=== PATIENT | male | born 1955 ===

== ENCOUNTER 2022-07-28 08:02 | Outpatient (CLI) | payer OTHER | END 2022-07-28 08:16 | disposition home or self-care (01) | LOC: MRI 08:02 | PROVIDERS: ATTEND Internal Medicine Gastroenterology | DX: K83.8 Other specified diseases of biliary tract (principal); R79.89 Other specified abnormal findings of blood chemistry; R17 Unspecified jaundice | CPT/HCPCS: 74181 ==